=== PATIENT | female | born 1945 | race Two or more races ===

== ENCOUNTER → 2021-09-14 12:44 | Outpatient (CLI) | payer OTHER ==
[~2021-09-14 12:44] MED LIST: VASOTEC10 MG
== END | disposition home or self-care (01) ==
LOC: NUCLEAR 12:44
PROVIDERS: ATTEND Internal Medicine
DX: G31.84 Mild cognitive impairment of uncertain or unknown etiology (principal); G30.0 Alzheimer's disease with early onset
CPT/HCPCS: 78803; A9557